=== PATIENT | male | born 1960 | race African-American/Black ===

== ENCOUNTER 2017-03-27 09:25 | Emergency (ER) | payer MEDICAID ==
[~2017-03-27] VITALS: Ht 180.3 cm; Wt 200.0 kg
[~2017-03-27 09:25] MED LIST: FLUT1DIS; FURO-151 PO; HYDR25TA; LISI-186; PROAIR
[2017-03-27] MEDS ORDERED: KETOROLAC 60MG/2ML VIAL IM ONE (11:00)
[2017-03-27 11:13] LABS: BASOPHILS % 0.9 % (0.0-2.0); EOSINOPHILS % 2.7 % (0.0-5.0); HEMATOCRIT. 40.7 % (42.0-52.0); HEMOGLOBIN. 13.4 g/dL (14.0-18.0); LYMPHOCYTES % 17.8 % (20.0-50.0); MEAN CORPUSCULAR HEMOGLOBIN 28.3 pg (28.0-32.0); MEAN CORPUSCULAR HGB CONC 33.1 g/dL (31.0-37.0); MEAN CORPUSCULAR VOLUME 85.5 fL (80.0-94.0); MEAN PLATELET VOLUME 7.2 fl (7.4-10.4); MONOCYTES % 7.6 % (2.0-8.0); PLATELET 266 x1000/uL (130-400); RED BLOOD CELL COUNT 4.76 mill/uL (4.7-6.1); RED CELL DISTRIBUTION WIDTH 14.9 % (11.6-14.6); WHITE BLOOD COUNT 11.1 x1000/uL (4.5-11.0)
[2017-03-27 11:21] LABS: CLARITY URINE CLEAR (CLEAR); COLOR URINE YELLOW (YELLOW); GLUCOSE URINE NEGATIVE (NEGATIVE); KETONES URINE NEGATIVE (NEGATIVE); LEUKOCYTE ESTERASE URINE NEGATIVE (NEGATIVE); NITRITE URINE NEGATIVE (NEGATIVE); OCCULT BLOOD URINE NEGATIVE (NEGATIVE); PROTEIN URINE NEGATIVE (NEGATIVE); SPECIFIC GRAVITY URINE 1.013 (1.005-1.030); UROBILINOGEN URINE 0.2 E.U./dL (0.2-1.0)
[2017-03-27 11:26] LABS: ALBUMIN 3.4 g/dL (3.4-5.0); ANION GAP 13; CALCIUM 8.8 mg/dL (8.5-10.1); CARBON DIOXIDE 30 mEq/L (21-32); CHLORIDE 102 mEq/L (98-107); INDEX HEMOLYSI 1 (1-3); INDEX ICTERIC 1 (1-4); INDEX LIPEMIC 1 (1-3); LIPASE 132 IU/L (73-393); UREA NITROGEN BLOOD 16 mg/dL (7-21); eGFR > 60 mL/min (>60)
[2017-03-27 11:29] LABS: ALANINE AMINOTRANSFERASE 20 IU/L (13-61)
[2017-03-27 13:17] VITALS: BP 143/72
== END 2017-03-27 13:20 | disposition home or self-care (01) ==
LOC: ER 11:40
DX: M94.0 Chondrocostal junction syndrome [Tietze] (principal); I10 Essential (primary) hypertension; J45.909 Unspecified asthma, uncomplicated
CPT/HCPCS: 36415; 71010; 80053; 81003; 83690; 85025; 96372; 99285; J1885

== ENCOUNTER 2018-05-12 11:55 | Emergency (ER) | payer MEDICARE, MEDICAID ==
[~2018-05-12] VITALS: Ht 175.3 cm; Wt 194.4 kg
[2018-05-12 14:00] VITALS: BP 135/84
== END 2018-05-12 15:05 | disposition home or self-care (01) ==
LOC: ER 13:06
DX: I10 Essential (primary) hypertension (principal)
CPT/HCPCS: 99281

== ENCOUNTER 2018-05-30 08:44 | Emergency (ER) | payer MEDICARE, MEDICAID ==
[~2018-05-30] VITALS: Ht 180.3 cm; Wt 200.0 kg
[2018-05-30] MEDS ORDERED: FUROSEMIDE 80MG TABLET PO ONE (11:45)
[2018-05-30 12:19] LABS: BASOPHILS % 0.8 % (0.0-2.0); EOSINOPHILS % 3.7 % (0.0-5.0); HEMATOCRIT. 38.8 % (42.0-52.0); HEMOGLOBIN. 12.8 g/dL (14.0-18.0); MEAN CORPUSCULAR HEMOGLOBIN 28.6 pg (28.0-32.0); MEAN CORPUSCULAR VOLUME 86.3 fL (80.0-94.0); MONOCYTES % 8.4 % (2.0-8.0); NEUTROPHILS % 67.1 % (40.0-76.0); PLATELET 225 x1000/uL (130-400); RED BLOOD CELL COUNT 4.49 mill/uL (4.7-6.1); RED CELL DISTRIBUTION WIDTH 15.6 % (11.6-14.6)
[2018-05-30 12:22] LABS: CHLORIDE 104 mEq/L (98-107)
[2018-05-30 14:13] VITALS: BP 158/98
== END 2018-05-30 14:14 | disposition home or self-care (01) ==
LOC: ER 08:44
DX: R60.0 Localized edema (principal); I16.0 Hypertensive urgency; F12.90 Cannabis use, unspecified, uncomplicated
CPT/HCPCS: 36415; 80053; 85025; 93970; 99285

== ENCOUNTER 2018-07-09 17:33 | Emergency (ER) | payer MEDICARE, MEDICAID ==
[~2018-07-09] VITALS: Ht 180.3 cm; Wt 204.0 kg
[2018-07-09 19:35] LABS: BASOPHILS % 0.6 % (0.0-2.0); EOSINOPHILS % 3.9 % (0.0-5.0); HEMOGLOBIN. 12.3 g/dL (14.0-18.0); LYMPHOCYTES % 20.9 % (20.0-50.0); MEAN CORPUSCULAR HEMOGLOBIN 28.9 pg (28.0-32.0); MEAN CORPUSCULAR VOLUME 86.7 fL (80.0-94.0); MEAN PLATELET VOLUME 6.9 fl (7.4-10.4); MONOCYTES % 8.7 % (2.0-8.0); NEUTROPHILS % 65.9 % (40.0-76.0); PLATELET 268 x1000/uL (130-400); RED BLOOD CELL COUNT 4.27 mill/uL (4.7-6.1); RED CELL DISTRIBUTION WIDTH 15.1 % (11.6-14.6)
[2018-07-09 19:42] LABS: CHLORIDE 105 mEq/L (98-107); PROTHROMBIN TIME 10.3 sec (9.1-11.1)
[2018-07-09 21:19] VITALS: BP 142/70
== END 2018-07-09 21:23 | disposition home or self-care (01) ==
LOC: ER 18:47
DX: R60.0 Localized edema (principal); I10 Essential (primary) hypertension; J45.909 Unspecified asthma, uncomplicated; F12.10 Cannabis abuse, uncomplicated; Z99.81 Dependence on supplemental oxygen
CPT/HCPCS: 36415; 71045; 80053; 83880; 84484; 85025; 85610; 93005; 99285

== ENCOUNTER 2019-02-25 11:13 | Emergency (ER) | payer MEDICARE, OTHER ==
[~2019-02-25] VITALS: Ht 172.7 cm; Wt 160.0 kg
[2019-02-25] MEDS ORDERED: ACETAMINOPHEN 325MG TABLET PO ONE (11:45)
[2019-02-25 12:05] LABS: BASOPHILS % 0.6 % (0.0-2.0); HEMATOCRIT. 38.8 % (42.0-52.0); HEMOGLOBIN. 12.9 g/dL (14.0-18.0); LYMPHOCYTES % 12.2 % (20.0-50.0); MEAN CORPUSCULAR HEMOGLOBIN 28.7 pg (28.0-32.0); MEAN CORPUSCULAR VOLUME 86.3 fL (80.0-94.0); MEAN PLATELET VOLUME 7.3 fl (7.4-10.4); MONOCYTES % 11.2 % (2.0-8.0); PLATELET 249 x1000/uL (130-400); RED CELL DISTRIBUTION WIDTH 15.1 % (11.6-14.6)
[2019-02-25 12:07] LABS: CHLORIDE 105 mEq/L (98-107)
[2019-02-25 15:25] LABS: CLARITY URINE CLEAR (CLEAR); COLOR URINE YELLOW (YELLOW); KETONES URINE TRACE (NEGATIVE); LEUKOCYTE ESTERASE URINE NEGATIVE (NEGATIVE); NITRITE URINE NEGATIVE (NEGATIVE); OCCULT BLOOD URINE NEGATIVE (NEGATIVE); PROTEIN URINE TRACE (NEGATIVE)
[2019-02-25 15:38] LABS: *AMPHETAMINES SCREEN URINE NEGATIVE (NEGATIVE); *BARBITURATES SCREEN URINE NEGATIVE (NEGATIVE); *BENZODIAZEPINES SCREEN URINE NEGATIVE (NEGATIVE); *COCAINE SCREEN URINE NEGATIVE (NEGATIVE); METHADONE URINE SCREEN NEGATIVE (NEGATIVE)
[2019-02-25 15:39] LABS: CANNABINOID URINE SCREEN NEGATIVE (NEGATIVE); OPIATES URINE SCREEN NEGATIVE (NEGATIVE); PHENCYCLIDINE URINE SCREEN NEGATIVE (NEGATIVE)
[2019-02-25 16:40] VITALS: BP 136/70
== END 2019-02-25 16:41 | disposition home or self-care (01) ==
LOC: ER 11:29
DX: M94.0 Chondrocostal junction syndrome [Tietze] (principal); I87.8 Other specified disorders of veins; D64.9 Anemia, unspecified; D72.810 Lymphocytopenia; R73.9 Hyperglycemia, unspecified; M71.22 Synovial cyst of popliteal space [Baker], left knee; D72.821 Monocytosis (symptomatic); E83.51 Hypocalcemia; E88.09 Other disorders of plasma-protein metabolism, not elsewhere classified; I10 Essential (primary) hypertension
CPT/HCPCS: 36415; 71045; 80305; 83880; 84484; 93005; 93970; 99284

== ENCOUNTER 2019-07-07 23:40 | Emergency (ER) | payer MEDICARE, OTHER ==
[~2019-07-07] VITALS: Ht 180.3 cm; Wt 182.7 kg
[2019-07-08] MEDS ORDERED: IBUPROFEN 600MG TABLET PO ONE (01:00)
[2019-07-08 01:27] VITALS: BP 124/73
== END 2019-07-08 01:35 | disposition home or self-care (01) ==
LOC: ER 23:40
DX: H60.91 Unspecified otitis externa, right ear (principal); R09.81 Nasal congestion; I10 Essential (primary) hypertension
CPT/HCPCS: 99283

== ENCOUNTER → 2019-12-05 | Outpatient (CLI) | payer MEDICARE, OTHER | END | disposition home or self-care (01) | LOC: CT 09:29 | PROVIDERS: ATTEND Anesthesiology Pain Medicine | DX: M47.816 Spondylosis without myelopathy or radiculopathy, lumbar region (principal); M48.061 Spinal stenosis, lumbar region without neurogenic claudication; Z79.891 Long term (current) use of opiate analgesic | CPT/HCPCS: 72131 ==

== ENCOUNTER 2022-11-17 02:45 | Emergency (ER) | payer OTHER, MEDICAID ==
[~2022-11-17] VITALS: Ht 175.3 cm; Wt 170.0 kg
[2022-11-17 02:47] VITALS: BP 144/86
[2022-11-17] MEDS ORDERED: PREDNISONE 20MG TABLET PO STA (03:07)
[2022-11-17] MEDS ORDERED: IPRATROPIUM BROMIDE (0.02%) 0.5MG/2.5ML NEB HHN STA (03:07)
[2022-11-17] MEDS ORDERED: ALBUTEROL (0.083%) 2.5MG/3ML NEB HHN STA (03:07)
[2022-11-17 05:29] LABS: BASOPHILS % 0.1 % (0.0-2.0); HEMOGLOBIN. 12.9 g/dL (14.0-18.0); LYMPHOCYTES % 11.1 % (20.0-50.0); MEAN CORPUSCULAR HEMOGLOBIN 29.5 pg (28.0-32.0); MEAN CORPUSCULAR VOLUME 89.2 fL (80.0-94.0); MEAN PLATELET VOLUME 7.5 fl (7.4-10.4); MONOCYTES % 6.7 % (2.0-8.0); NEUTROPHILS % 81.1 % (40.0-76.0); PLATELET 264 x1000/uL (130-400); RED BLOOD CELL COUNT 4.37 mill/uL (4.7-6.1); RED CELL DISTRIBUTION WIDTH 16.2 % (11.6-14.6)
[2022-11-17 06:01] LABS: CHLORIDE 107 mEq/L (98-107)
[2022-11-17] MEDS ORDERED: P50 MT (06:01)
[2022-11-17] MEDS ORDERED: POTASSIUM CHLORIDE 20MEQ TABLET SR PO NR (06:15)
[2022-11-17] MEDS ORDERED: IPRATROPIUM/ALBUTEROL 0.5-3(2.5)MG/3ML NEB HHN ONE (09:15)
== END 2022-11-17 11:22 | disposition home or self-care (01) ==
LOC: ER 02:45
DX: J44.1 Chronic obstructive pulmonary disease with (acute) exacerbation (principal); F12.10 Cannabis abuse, uncomplicated; I10 Essential (primary) hypertension; Z98.890 Other specified postprocedural states
CPT/HCPCS: 36415; 71045; 80053; 83880; 84484; 85025; 93005; 94640; 99285; J7512

== ENCOUNTER 2023-02-22 08:41 | Emergency (ER) | payer OTHER, MEDICAID ==
[~2023-02-22] VITALS: Ht 175.3 cm; Wt 150.0 kg
[~2023-02-22 08:41] MED LIST changes: +P50 MT
[2023-02-22] MEDS ORDERED: METHYLPREDNISOLONE SOD SUCC 125 MG/2 ML VIAL IV STA (08:44)
[2023-02-22] MEDS ORDERED: IPRATROPIUM BROMIDE (0.02%) 0.5MG/2.5ML NEB HHN STA (08:44)
[2023-02-22] MEDS ORDERED: MAGNESIUM 2 G PREMIX 50 ML IV STA (08:44)
[2023-02-22] MEDS ORDERED: ALBUTEROL (0.083%) 2.5MG/3ML NEB HHN STA (08:44)
[2023-02-22 09:26] LABS: BG CARBOXYHEMOGLOBIN 0.6 % (0.5-1.5); BG DEOXYHEMOGLOBIN 1.3 % (0.0-5.0); BG FRACTION INSPIRED OXYGEN 60; BG HCO3 ACT 26.3 mmol/L (22.0-26.0); BG METHEMOGLOBIN 0.2 % (0.0-1.5); BG OXYGEN SATURATION 98.7 % (92.0-98.5); BG OXYHEMOGLOBIN 97.9 % (94.0-97.0); BG PCO2 44.4 mmHg (35.0-45.0); BG PH 7.391 (7.350-7.450); BG PO2 164.7 mmHg (75.0-100.0); BG SAMPLE SITE LEFT RADIAL; BG TOTAL HEMOGLOBIN 14.5 g/dL (12.0-18.0); BG VENT MODE HHN
[2023-02-22 10:59] LABS: CHLORIDE 110 mEq/L (98-107)
[2023-02-22] MEDS ORDERED: METHYLPREDNISOLONE SOD SUCC 125 MG/2 ML VIAL IV NR (11:00)
[2023-02-22 11:05] LABS: BASOPHILS % 0.3 % (0.0-2.0); HEMATOCRIT. 41.6 % (42.0-52.0); HEMOGLOBIN. 13.6 g/dL (14.0-18.0); LYMPHOCYTES % 19.7 % (20.0-50.0); MEAN CORPUSCULAR HEMOGLOBIN 29.4 pg (28.0-32.0); MEAN CORPUSCULAR VOLUME 90.2 fL (80.0-94.0); MEAN PLATELET VOLUME 7.2 fl (7.4-10.4); PLATELET 285 x1000/uL (130-400); RED BLOOD CELL COUNT 4.62 mill/uL (4.7-6.1)
[2023-02-22] MEDS ORDERED: P50 PO (13:15)
[2023-02-22 13:45] VITALS: BP 158/87
== END 2023-02-22 13:54 | disposition home or self-care (01) ==
LOC: ER 08:41
DX: J44.9 Chronic obstructive pulmonary disease, unspecified (principal); F12.10 Cannabis abuse, uncomplicated; I10 Essential (primary) hypertension
CPT/HCPCS: 36415; 36600; 71045; 80053; 82375; 82805; 83880; 84484; 85025; 93005; 94644; 96365; 96375; 99285; J2930; J3475

== ENCOUNTER 2023-03-08 10:54 | Emergency (ER) | payer OTHER, MEDICAID ==
[~2023-03-08] VITALS: Ht 180.3 cm; Wt 160.0 kg
[~2023-03-08 10:54] MED LIST changes: +P50 PO
[2023-03-08 11:31] LABS: BASOPHILS % 0.7 % (0.0-2.0); EOSINOPHILS % 3.1 % (0.0-5.0); HEMATOCRIT. 40.5 % (42.0-52.0); HEMOGLOBIN. 13.6 g/dL (14.0-18.0); LYMPHOCYTES % 11.6 % (20.0-50.0); MEAN CORPUSCULAR HEMOGLOBIN 29.9 pg (28.0-32.0); MEAN CORPUSCULAR VOLUME 89.1 fL (80.0-94.0); MEAN PLATELET VOLUME 7.1 fl (7.4-10.4); MONOCYTES % 12.1 % (2.0-8.0); NEUTROPHILS % 72.5 % (40.0-76.0); PLATELET 248 x1000/uL (130-400); RED BLOOD CELL COUNT 4.55 mill/uL (4.7-6.1)
[2023-03-08 11:36] LABS: CHLORIDE 106 mEq/L (98-107)
[2023-03-08] MEDS ORDERED: PREDNISONE 20MG TABLET PO STA (13:31)
[2023-03-08] MEDS ORDERED: IPRATROPIUM BROMIDE (0.02%) 0.5MG/2.5ML NEB HHN STA (13:31)
[2023-03-08 14:35] LABS: BASOPHILS % 0.6 % (0.0-2.0); EOSINOPHILS % 3.7 % (0.0-5.0); HEMATOCRIT. 40.7 % (42.0-52.0); HEMOGLOBIN. 13.5 g/dL (14.0-18.0); LYMPHOCYTES % 13.8 % (20.0-50.0); MEAN CORPUSCULAR HEMOGLOBIN 29.5 pg (28.0-32.0); MEAN CORPUSCULAR VOLUME 88.8 fL (80.0-94.0); MEAN PLATELET VOLUME 7.1 fl (7.4-10.4); MONOCYTES % 12.6 % (2.0-8.0); NEUTROPHILS % 69.3 % (40.0-76.0); PLATELET 259 x1000/uL (130-400); RED BLOOD CELL COUNT 4.59 mill/uL (4.7-6.1); RED CELL DISTRIBUTION WIDTH 15.3 % (11.6-14.6)
[2023-03-08 14:43] LABS: CHLORIDE 107 mEq/L (98-107)
[2023-03-08 15:00] VITALS: BP 149/80
[2023-03-08] MEDS ORDERED: PREDNISONE 20MG TABLET PO NR (15:15)
[2023-03-08] MEDS: ALBUTEROL (0.083%) 2.5MG/3ML NEB HHN SCH ×3 (15:27→16:49)
[2023-03-08] MEDS ORDERED: P20 MT (17:30)
== END 2023-03-08 19:50 | disposition home or self-care (01) ==
LOC: ER 10:54
DX: J44.1 Chronic obstructive pulmonary disease with (acute) exacerbation (principal); I10 Essential (primary) hypertension
CPT/HCPCS: 36415; 71045; 80053; 84484; 85025; 93005; 94640; 99285; J7512

== ENCOUNTER 2024-02-10 12:52 | Emergency (ER) | payer OTHER, MEDICAID ==
[~2024-02-10] VITALS: Ht 180.3 cm; Wt 152.0 kg
[~2024-02-10 12:52] MED LIST changes: +P20 MT
[2024-02-10 13:35] LABS: HEMOGLOBIN. 15.5 g/dL (14.0-18.0); MEAN CORPUSCULAR HEMOGLOBIN 30.7 pg (28.0-32.0); MEAN CORPUSCULAR HGB CONC 33.8 g/dL (31.0-37.0); PLATELET 302 x1000/uL (130-400); RED BLOOD CELL COUNT 5.05 mill/uL (4.7-6.1); RED CELL DISTRIBUTION WIDTH 14.5 % (11.6-14.6); WHITE BLOOD COUNT 10.3 x1000/uL (4.5-11.0)
[2024-02-10 13:55] LABS: ALANINE AMINOTRANSFERASE 45 IU/L (10-49); ALBUMIN 4.3 g/dL (3.2-4.8); ASPARTATE AMINOTRANSFERASE 38 IU/L (<34); BILIRUBIN TOTAL 1.2 mg/dL (0.1-1.0); CALCIUM 8.7 mg/dL (8.7-10.4); CARBON DIOXIDE 26 mEq/L (21-32); CHLORIDE 107 mEq/L (98-107); GLUCOSE 93 mg/dL (70-105); POTASSIUM 4.1 mEq/L (3.5-5.1); PROTEIN TOTAL 7.6 g/dL (6.0-8.3); SODIUM 136 mEq/L (136-145); TROPONIN I HIGH SENSITIVITY < 4 ng/L (3.0-53); UREA NITROGEN BLOOD 24 mg/dL (9-23)
[2024-02-10 13:59] LABS: DIFFERENTIAL COMMENT 1
[2024-02-10 14:33] LABS: PLATELET ESTIMATE NORMAL
[2024-02-10] MEDS ORDERED: P50 MT (15:31)
[2024-02-10] MEDS: PREDNISONE 20MG TABLET PO ONE (15:55)
[2024-02-10 16:05] VITALS: PULSE 89; RESP 18; O2SAT 100
[2024-02-10] MEDS: IPRATROPIUM/ALBUTEROL 0.5-3(2.5)MG/3ML NEB HHN ONE (16:05)
[2024-02-10 16:35] VITALS: BP 144/79; PULSE 94; RESP 20; TEMP 98.1
== END 2024-02-10 16:41 | disposition home or self-care (01) ==
LOC: ER 12:52
DX: J44.1 Chronic obstructive pulmonary disease with (acute) exacerbation (principal); I10 Essential (primary) hypertension
CPT/HCPCS: 99285; 71045; 80053; 83880; 85025; 84484; 36415; 94640; 93005; J7512

== ENCOUNTER 2024-06-29 15:05 | Emergency (ER) | payer OTHER, MEDICAID ==
[~2024-06-29] VITALS: Ht 180.3 cm; Wt 163.7 kg
[2024-06-29 15:22] VITALS: TEMP 98.1
[2024-06-29 16:36] LABS: BASOPHILS % 0.8 % (0.0-2.0); EOSINOPHILS % 4.5 % (0.0-5.0); HEMATOCRIT. 38.5 % (42.0-52.0); HEMOGLOBIN. 12.7 g/dL (14.0-18.0); LYMPHOCYTES % 21.1 % (20.0-50.0); MEAN CORPUSCULAR HEMOGLOBIN 30.3 pg (28.0-32.0); MEAN CORPUSCULAR HGB CONC 33.1 g/dL (31.0-37.0); MEAN CORPUSCULAR VOLUME 91.7 fL (80.0-94.0); MEAN PLATELET VOLUME 7.2 fl (7.4-10.4); MONOCYTES % 8.2 % (2.0-8.0); NEUTROPHILS % 65.4 % (40.0-76.0); PLATELET 247 x1000/uL (130-400); WHITE BLOOD COUNT 10.4 x1000/uL (4.5-11.0)
[2024-06-29 16:49] LABS: TROPONIN I HIGH SENSITIVITY 4 ng/L (3.0-53)
[2024-06-29 16:50] LABS: ALANINE AMINOTRANSFERASE 29 IU/L (10-49); ALBUMIN 3.5 g/dL (3.2-4.8); ASPARTATE AMINOTRANSFERASE 28 IU/L (<34); BILIRUBIN DIRECT 0.5 mg/dL (<=3.0); BILIRUBIN TOTAL 1.1 mg/dL (0.1-1.0)
[2024-06-29 16:51] LABS: PROTEIN TOTAL 5.9 g/dL (6.0-8.3)
[2024-06-29] MEDS: IPRATROPIUM BROMIDE (0.02%) 0.5MG/2.5ML NEB HHN NR (19:02)
[2024-06-29 19:03] VITALS: PULSE 78; RESP 18; O2SAT 99
[2024-06-29] MEDS: ALBUTEROL (0.083%) 2.5MG/3ML NEB HHN NR (19:03)
[2024-06-29] MEDS: PREDNISONE 20MG TABLET PO NR (19:16)
[2024-06-29 19:48] LABS: CHLORIDE 107 mEq/L (98-107); POTASSIUM 4.1 mEq/L (3.5-5.1); SODIUM 139 mEq/L (136-145)
[2024-06-29 19:49] LABS: CALCIUM 8.5 mg/dL (8.7-10.4); CARBON DIOXIDE 26 mEq/L (21-32)
[2024-06-29 19:54] LABS: GLUCOSE 87 mg/dL (70-105); UREA NITROGEN BLOOD 12 mg/dL (9-23)
[2024-06-29] MEDS ORDERED: P20 MT (21:17)
[2024-06-29] MEDS ORDERED: ALBU05 NEB (21:18)
[2024-06-29] MEDS ORDERED: AZIT250T12 MT (21:19)
[2024-06-29] MEDS: AZITHROMYCIN 500 MG TABLET PO ONE (22:03)
[2024-06-29 22:08] VITALS: BP 155/85; PULSE 74; RESP 16
[2024-06-29] MEDS ORDERED: IOHEXOL-350 100 ML BOTTLE ONE (23:49)
== END 2024-06-29 22:10 | disposition home or self-care (01) ==
LOC: ER 15:05
DX: J44.9 Chronic obstructive pulmonary disease, unspecified (principal); I10 Essential (primary) hypertension; Z79.899 Other long term (current) drug therapy
CPT/HCPCS: 99291; 71275; 80076; 80048; 83690; 85025; 85379; 84484; 36415; 71045; 94640; 93005; Q9967; J7512

== ENCOUNTER 2024-07-09 20:47 | Emergency (ER) | payer OTHER, MEDICAID ==
[~2024-07-09] VITALS: Ht 177.8 cm; Wt 160.0 kg
[~2024-07-09 20:47] MED LIST changes: +ALBU05 NEB; +AZIT250T12 MT
[2024-07-09 20:55] VITALS: O2SAT 97
[2024-07-10 00:38] VITALS: BP 159/97; PULSE 76; RESP 17; TEMP 36.66960; O2SAT 100
== END 2024-07-10 02:20 | disposition home or self-care (01) ==
LOC: ER 20:47
DX: I10 Essential (primary) hypertension (principal); J44.9 Chronic obstructive pulmonary disease, unspecified; Z79.899 Other long term (current) drug therapy
CPT/HCPCS: 99281

== ENCOUNTER 2024-11-12 15:11 | Emergency (ER) | payer OTHER, MEDICAID ==
[~2024-11-12] VITALS: Ht 180.3 cm; Wt 137.0 kg
[2024-11-12 15:23] VITALS: O2SAT 97
[2024-11-12 15:27] VITALS: O2SAT 96
[2024-11-12 17:45] VITALS: BP 141/81; PULSE 74; RESP 18; TEMP 36.61404
== END 2024-11-12 17:50 | disposition home or self-care (01) ==
LOC: ER 15:11
DX: I10 Essential (primary) hypertension (principal); E11.9 Type 2 diabetes mellitus without complications; J44.9 Chronic obstructive pulmonary disease, unspecified; Z79.899 Other long term (current) drug therapy
CPT/HCPCS: 99281